=== PATIENT | male | born 1970 | race African-American/Black ===

== ENCOUNTER 2018-02-17 15:16 | Inpatient (IN) ==
[2018-02-17] MEDS ORDERED: Ondansetron 4 MG/2 ML VIAL IVP ONE (16:35)
[2018-02-17] MEDS ORDERED: *HR* HYDROmorphone (PF) 1 MG/ML SYRINGE IVP ONE (16:35)
--- NOTE | 2018-02-17 16:41 | Emergency Department Note ---
Disposition Clinical Impression: Left ureteral stone, Left flank pain Disposition: Admitted As Inpatient Condition: Good Forms: ED Satisfaction Letter, Work/School Release Time of Disposition: 18:14 Abdominal Pain HPI - General Chief Complaint: ED Abdominal Pain Stated Complaint: "kidney stone" Time Seen by Provider: 02/17/18 16:26 Source: patient, family Mode of arrival: ambulatory Limitations: no limitations Nursing Notes Reviewed: Yes Vital Signs Reviewed: Yes - History of Present Illness HPI Narrative: 47-year-old male presents emergency room for left flank pain. Onset earlier this morning. Pain isolated to the left flank. History of kidney stones. Missed to painful urination. Positive for nausea and vomiting. No fevers. History of lithotripsy and ureteral stent placement in the past. He does have a urologist he follows with. Nothing improves or worsens his symptoms. Pain is isolated to the left flank but it does have some radiation to the left lower quadrant. Pain Scale: 10 - Related Data Home Medications Medication Instructions Recorded Confirmed Acetaminophen [Tylenol] 325 mg PO Q6HR 01/13/16 01/13/16 Flaxseed/Omega3,6,9/Fatty Acid 1 each PO DAILY 01/13/16 01/13/16 [Flax Seed Oil 1,300 mg Softgel] Ibuprofen [Advil] 200 mg PO Q6H 01/13/16 01/13/16 Lisinopril [Zestril] 5 mg PO DAILY 01/13/16 01/13/16 Metoprolol [Lopressor] 25 mg PO BID 01/13/16 01/13/16 [place]-3/Dha/Epa/Fish Oil [Fish Oil 1 each PO DAILY 01/13/16 01/13/16 1,000 mg Softgel] Previous Rx's Medication Instructions Recorded Docusate [Colace] 100 mg PO BID #60 capsule 01/13/16 HYDROmorphone [Dilaudid] 2 mg PO Q4HR PRN #45 tablet 01/13/16 Oxycodone HCl/Acetaminophen 2 each PO Q4H PRN #45 tablet 01/13/16 [Percocet 5-325 mg Tablet] Allergies Allergy/AdvReac Type Severity Reaction Status Date / Time codeine AdvReac Hives Verified 01/13/16 09:12 hydrocodone [From Lortab] AdvReac Hives Verified 01/13/16 09:12 All systems ED: reviewed and negative except as stated. Constitutional: Denies: fever, chills Eyes: Denies: eye pain ENT ED: Denies: congestion Cardiovascular: Denies: chest pain Respiratory: Denies: cough Gastrointestinal: Reports: abdominal pain, nausea Genitourinary: Reports: urgency, dysuria Musculoskeletal: Reports: back pain Integumentary: Reports: as per HPI Neurological: Reports: as per HPI Psychiatric: Reports: as per HPI Endocrine: Reports: as per HPI Allergic/Immunologic: Reports: as per HPI Abdominal Pain PMH - Past Medical History Medical history: Reports: hypertension, other Male Surgical History: Reports: orthopedic, other, other Psychiatric history: Reports: no psych history - Social History Smoking status: Never smoker Alcohol use: Reports: occasionally Drug use: Reports: none Physical Exam Patient laying on his right side - General Limitations: no limitations General appearance: alert, in no apparent distress - Head Head exam: atraumatic, normocephalic - Eye Eye exam: Present: normal appearance - Respiratory Respiratory exam: Present: normal lung sounds bilaterally - Cardiovascular Cardiovascular exam: Present: regular rate, normal rhythm - Abdominal Exam Abdominal exam: Present: soft, Non-Tender, other (Positive for left flank tenderness.). Absent: tenderness, distention, guarding - Extremities Exam Extremities exam: Present: normal inspection - Neurological Exam Neurological exam: Present: alert, oriented X3 - Psychiatric Psychiatric exam: Present: normal affect, normal mood - Skin Skin exam: Present: warm, dry, intact Course Vital Signs Temperature 97.8 F 02/17/18 15:24 Pulse Rate 69 02/17/18 15:24 Respiratory Rate 18 02/17/18 15:24 Blood Pressure 180/116 02/17/18 15:24 O2 Sat by Pulse Oximetry 99 02/17/18 15:24 Temperature 97.8 F 02/17/18 15:24 Pulse Rate 71 02/17/18 16:37 Respiratory Rate 15 02/17/18 16:37 Blood Pressure 154/113 02/17/18 16:37 O2 Sat by Pulse Oximetry 99 02/17/18 16:37 Oxygen Delivery Oxygen Delivery Room Air Abdominal Pain - MDM Narrative Medical decision making narrative: Patient has 2 large stones in the left ureter I spoke with his urologist, Dr. Pabon. He would prefer the patient be admitted so he can to lithotripsy and ureteroscopy tomorrow. Pain is under control at this time with Dilaudid. We will admit to the hospitalist and consult with urology. - Medical Records Medical records reviewed: Yes I reviewed the patient's medical records. - Lab Data Lab results reviewed: Yes I reviewed the patient's lab results. Result diagrams: 02/17/18 16:53 02/17/18 16:53 Lab Results 02/17/18 02/17/18 02/17/18 Range/Units 16:31 16:53 16:53 WBC 11.8 H (4.3-11.1) K/mcL RBC 4.33 (4.19-5.50) M/mcL Hgb 13.1 (12.9-16.9) g/dL Hct 38.9 (37.5-50.1) % MCV 89.8 (83.0-100.0) fL MCH 30.3 (28.0-33.3) pg MCHC 33.7 (31.6-35.5) g/dL RDW 13.2 (11.5-14.5) % Plt Count 282 (140-400) K/mcL MPV 9.1 L (9.4-12.4) fL Immature Gran % 0.3 (0-4) % Seg Neutrophils % 81.0 % Lymphocytes % 11.3 % Monocytes % 4.7 % Eosinophils % 2.0 % Basophils % 0.7 % Neutrophils # 9.6 H (1.6-8.9) K/mcL Lymphocytes # 1.3 (0.6-4.6) K/mcL Monocytes # 0.6 (0.0-1.3) K/mcL Eosinophils # 0.2 (0.0-0.6) K/mcL Basophils # 0.1 (0.0-0.2) K/mcL Sodium 139 (136-145) mEq/L Potassium 3.4 L (3.5-5.1) mEq/L Chloride 108 H (98-107) mEq/L Carbon Dioxide 23 (23-29) mEq/L BUN 15 (6-20) mg/dL Creatinine 1.15 (0.70-1.30) mg/dL Est GFR ( Amer) > 60 (> 60) Est GFR (Non-Af Amer) > 60 (> 60) BUN/Creatinine Ratio 13 (6-26) Glucose 103 (70-105) mg/dL Calculated Osmolality 289 (280-300) Calcium 9.4 (8.6-10.3) mg/dL Urine Color Yellow (Yellow) Urine Clarity Clear (Clear) Urine pH 6.0 (5.0-8.0) pH Units Ur Specific [place] 1.023 (1.010-1.025) Urine Protein 30 H (Neg-Trace) mg/dL Urine Glucose (UA) Normal (Normal) mg/dL Urine Ketones Negative (Negative) mg/dL Urine Blood Large H (Negative) Urine Nitrite Negative (Negative) Urine Bilirubin Negative (Negative) Urine Urobilinogen Normal (Normal) mg/dL Ur Leukocyte Esterase Small H (Negative) Urine Microscopic RBC 50-100 H (0-3) per hpf Urine Microscopic WBC 0-3 (0-3) per hpf Ur Squamous Epith Cells Moderate H (None-Few) per lpf Urine Bacteria None Seen (None-Few) per hpf Hyaline Casts None Seen (None-Few) per lpf Ur Culture Indicated? YES A (NO) - Radiology Data Radiology results reviewed: Yes I reviewed the patient's radiology results.
[2018-02-17 16:57] LABS: Bilirubin,Urine Negative (Negative); Blood,Urine Large (Negative); Clarity,Urine Clear (Clear); Color,Urine Yellow (Yellow); Glucose,Urine (UA) Normal (Normal); Ketones,Urine Negative (Negative); Leukocyte Esterase,Urine Small (Negative); Nitrite,Urine Negative (Negative); Protein,Urine 30 mg/dL (Neg-Trace); Specific Gravity,Urine 1.023 (1.010-1.025); Urobilinogen,Urine Normal (Normal)
[2018-02-17 16:59] LABS: Bacteria,Urine None Seen per hpf (None-Few); Hyaline Casts,Urine None Seen per lpf (None-Few); RBC,Urine 50-100 per hpf (0-3); Squamous Epithelial Cell,Urine Moderate per lpf (None-Few); WBC,Urine 0-3 per hpf (0-3)
[2018-02-17 17:27] LABS: Basophils # 0.1 K/mcL (0.0-0.2); Basophils % 0.7 %; Eosinophils # 0.2 K/mcL (0.0-0.6); Hematocrit 38.9 % (37.5-50.1); Hemoglobin 13.1 g/dL (12.9-16.9); Immature Granulocytes % 0.3 % (0-4); Lymphocytes # 1.3 K/mcL (0.6-4.6); Lymphocytes % 11.3 %; Mean Corpuscular HGB Conc 33.7 g/dL (31.6-35.5); Mean Corpuscular Hemoglobin 30.3 pg (28.0-33.3); Mean Corpuscular Volume 89.8 fL (83.0-100.0); Mean Platelet Volume 9.1 fL (9.4-12.4); Monocytes # 0.6 K/mcL (0.0-1.3); Monocytes % 4.7 %; Neutrophils # 9.6 K/mcL (1.6-8.9); Platelet Count 282 K/mcL (140-400); Red Blood Count 4.33 M/mcL (4.19-5.50); Red Cell Distribution Width 13.2 % (11.5-14.5)
[2018-02-17 17:37] LABS: BUN/Creatinine Ratio 13 (6-26); Blood Urea Nitrogen 15 mg/dL (6-20); Calcium 9.4 mg/dL (8.6-10.3); Carbon Dioxide 23 mEq/L (23-29); Chloride 108 mEq/L (98-107); Glucose 103 mg/dL (70-105); Osmolality,Calculated 289 (280-300); Potassium 3.4 mEq/L (3.5-5.1); Sodium 139 mEq/L (136-145); eGFR For Non-African Americans > 60 (> 60)
[2018-02-17] MEDS ORDERED: Ketorolac 15 MG/ML VIAL IVP ONE (18:12)
[2018-02-17] MEDS ORDERED: Acetaminophen 325 MG TABLET PO PRN (21:37)
[2018-02-17] MEDS ORDERED: Naloxone 0.4 MG/ML INJ IVP PRN (21:37)
[2018-02-17] MEDS ORDERED: Ondansetron 4 MG/2 ML VIAL IVP PRN (21:44)
[2018-02-17] MEDS ORDERED: *HR* FentaNYL (PF) 100 MCG/2 ML VIAL IVP PRN (21:44)
[2018-02-17] MEDS ORDERED: cefTRIAXone 2,000 MG in Water for inj. (sterile) 20 ML 20 ML IVP SCH (22:00)
[2018-02-17] MEDS: 0.9 % Sodium Chloride w KCl 20 MEQ/1,000 ML MLS IVC SCH (22:15)
--- NOTE | 2018-02-18 00:36 | Internal Med History&Physical ---
Date of Encounter: 02/17/18 Time of Encounter: 20:35 Internal Medicine - H&P: HPI Chief complaint: left flank pain Admitted From: Emergency Dept Plans for Post Hospital Care: Home History of present illness: Mr. Rizo is a 47 year old male who presents with a one day history of acute onset of left-sided flank pain, associated nausea, vomiting, and subjective fevers. He was seen and evaluated in the ER and found to have obstructing stones in his left ureter with some mild hydronephrosis. He was therefore admitted to hospitalist service with urology consultation. Upon my assessment of the patient, he is having some pain and nausea but otherwise denies any complaints. He was feeling well until roughly 2 days ago. He has a history of kidney stones requiring intervention in the past. He denies any dysuria, hematuria, or urinary urgency. He denies any cough, shortness breath, chest pain, or diarrhea. He has had open-heart surgery in the past requiring mitral valve repair of his redding valve. He does not take any chronic home medications and does not require anticoagulation. Past Med Surg Social Fam HX - Past Medical History Attestation: Yes The following information was validated with the patient. Source: patient, old records reviewed Medical history: hypertension, kidney stones Additional medical history: MV repair, crohn's Psychiatric history: no psych history - Past Surgical History Surgical History: ureteral stent Additional surgical history: knee scope, mitral valve repair - Social History Smoking Status: Never smoker Smokeless Tobacco Status: No Alcohol use: occasionally Drug use: none Current living situation: Home, With Family Activity Level: Independent ambulation Recent Out of Country Travel Within the Last 8 Weeks: No - Family History Mother Hx Family Cardiac Disorders: Yes Hx Family Genitourinary Disorders: No Father Hx Family Genitourinary Disorders: No Internal Medicine - H&P: Meds [place]-3/Dha/Epa/Fish Oil [Fish Oil 1,000 mg Softgel] 2 cap PO HS 01/13/16 [ History] Glucosamn/Condroitn/C/Mn/[place] [[facility]vs Glucosamine Chondroit Cplt] 3 tab PO HS [History] 3 Allergy/AdvReac Type Severity Reaction Status Date / Time codeine Allergy Hives Verified 02/17/18 22:23 hydrocodone [From Lortab] Allergy Hives Verified 02/17/18 22:23 - Constitutional Constitutional: fever(s), no chills, no night sweats - EENT Eyes: no change in vision Ears: no ear pain, no tinnitus Nose, mouth and throat: no nasal congestion, no sore throat - Cardiovascular Cardiovascular ROS IM: no chest pain, no dyspnea, no dyspnea on exertion - Respiratory Respiratory: no cough, no chest congestion - Gastrointestinal Gastrointestinal: nausea, vomiting, no abdominal pain, no diarrhea, no hematemesis, no hematochezia, no melena - Genitourinary Genitourinary ROS male: flank pain, no dysuria, no hematuria, no urinary frequency, no urinary urgency - Musculoskeletal Musculoskeletal ROS IM: no arthralgias, no back pain - Integumentary Integumentary IM: no rash, no jaundice - Neurological Neurological ROS: no dizziness, no focal weakness, no frequent falls, no headache(s) - Psychiatric Psychiatric: no anxiety, no depression - Endocrine Endocrine IM: no polydipsia, no polyuria - Allergic/Immunologic Allergic/Immunologic: no GI upset with certain foods - Constitutional Vitals: Temp Pulse Resp BP Pulse Ox 98.2 F 68 13 146/90 99 02/17/18 22:37 02/17/18 22:37 02/17/18 22:37 02/17/18 22:37 02/17/18 22:37 General appearance: Present: cooperative, mild distress, A&O X 3, pleasant, answers questions appropriately Exam: see below - Head Head exam: Present: normal inspection - Eye Eye exam: Present: EOMI, normal appearance, PERRL. Absent: scleral icterus Pupils: Present: normal accommodation - ENT ENT exam: Present: mucous membranes dry, normal exam, normal oropharynx - Neck Neck exam general surgery: Present: full ROM, supple. Absent: tenderness, nuchal rigidity, thyromegaly - Respiratory Respiratory exam: Present: CTAB. Absent: chest wall tenderness, rales, rhonchi , wheezes - Cardiovascular Cardiovascular exam: Present: RRR, +S1, +S2. Absent: diastolic murmur, systolic murmur - GI/Abdominal GI/Abdominal exam: Present: normal bowel sounds, soft, tenderness (LUQ/flank area). Absent: guarding, hepatomegaly, mass, rebound, splenomegaly - Extremities Exam Extremities exam: Present: full ROM, normal capillary refill, warm, radial pulses palpable and symmetrical. Absent: calf tenderness, tenderness - Back Exam Back exam: Present: CVA tenderness (L). Absent: CVA tenderness (R) - Neurological Exam Neurological exam: Present: alert, CN II-XII intact, oriented X3, no focal deficits, strengths equal and symetr throughout - Psychiatric Psychiatric exam: Present: normal affect, normal mood - Skin Skin exam: Present: dry, warm. Absent: rash Internal Med - H&P Results - Labs CBC & Chem 7: 02/17/18 16:53 02/17/18 16:53 - Diagnostic Studies CT scan - abdomen Additional comments: Report reviewed: obstructing stone x 2 in left ureter w mild hydronephrosis - Assessment and plan (1) Left ureteral stone Current Visit: Yes Status: Acute Assessment and plan: 1. Will hydrate with IVF. 2. Pain and nausea control with IV Fentanyl and Zofran respectively. 3. Urology has been consulted and will likely take patient to OR in the morning for ureteral stent and lithotripsy. (2) UTI (urinary tract infection) Current Visit: Yes Status: Suspected Assessment and plan: 1. Given elevated WBC, subjective fever, and abnormal U/A, will treat for UTI with Rocephin. 2. Follow blood and urine cultures. Qualifiers: Urinary tract infection type: acute cystitis Hematuria presence: with hematuria Qualified Code(s): N30.01 - Acute cystitis with hematuria (3) S/P mitral valve repair Current Visit: Yes Status: Chronic Assessment and plan: 1. No acute process; s/p repair several years ago. (4) DVT prophylaxis Current Visit: Yes Status: Acute Assessment and plan: 1. Heparin SQ.
[2018-02-18 01:59] LABS: Basophils # 0.1 K/mcL (0.0-0.2); Basophils % 0.9 %; Eosinophils # 0.3 K/mcL (0.0-0.6); Eosinophils % 2.5 %; Hematocrit 40.5 % (37.5-50.1); Hemoglobin 13.6 g/dL (12.9-16.9); Immature Granulocytes % 0.2 % (0-4); Lymphocytes # 2.2 K/mcL (0.6-4.6); Lymphocytes % 21.5 %; Mean Corpuscular HGB Conc 33.6 g/dL (31.6-35.5); Mean Corpuscular Hemoglobin 29.8 pg (28.0-33.3); Mean Corpuscular Volume 88.6 fL (83.0-100.0); Monocytes # 0.9 K/mcL (0.0-1.3); Monocytes % 8.8 %; Neutrophils # 6.6 K/mcL (1.6-8.9); Platelet Count 305 K/mcL (140-400); Red Blood Count 4.57 M/mcL (4.19-5.50); Red Cell Distribution Width 13.2 % (11.5-14.5); Segmented Neutrophils % 66.1 %
[2018-02-18 02:06] LABS: Prothrombin Time 11.2 Seconds (9.4-12.1)
[2018-02-18 02:09] LABS: Activated Partial Thrombo Time 31.2 Seconds (26.0-36.0)
[2018-02-18 02:17] LABS: Alanine Aminotransferase 15 Units/L (7-52); Albumin 4.4 g/dL (3.5-5.7); Albumin/Globulin Ratio 1.5 (1.1-2.2); Alkaline Phosphatase 79 Units/L (34-104); Aspartate Amino Transferase 18 Units/L (13-39); BUN/Creatinine Ratio 13 (6-26); Bilirubin,Total 0.3 mg/dL (0.3-1.0); Blood Urea Nitrogen 14 mg/dL (6-20); Calcium 9.1 mg/dL (8.6-10.3); Carbon Dioxide 26 mEq/L (23-29); Chloride 108 mEq/L (98-107); Glucose 103 mg/dL (70-105); Magnesium 2.3 mg/dL (1.6-2.6); Osmolality,Calculated 291 (280-300); Potassium 3.7 mEq/L (3.5-5.1); Sodium 140 mEq/L (136-145); Total Protein 7.4 g/dL (6.4-8.9); eGFR For Non-African Americans > 60 (> 60)
[2018-02-18] MEDS ORDERED: *HR* Heparin 5,000 UNIT/ML VIAL SQ SCH (06:00)
--- NOTE | 2018-02-18 08:20 | Urology - Consult Note ---
<Candice Simon N - Last Filed: 02/18/18 08:14> Date of Encounter: 02/18/18 Time of Encounter: 08:14 - Assessment and Plan (1) Left ureteral stone Current Visit: Yes Status: Acute Assessment and plan: Patient is a 47-year-old male who presents with left obstructing ureteral stones measuring 6 mm and 8 mm and left hydronephrosis. The patient was admitted to the hospitalist service for stone protocol and pain control. Dr. Pabon has reviewed the risks and benefits of surgery. The patient verbalized understanding, consent has been signed, he will remain NPO, and he is prepared to undergo a left ureteroscopic stone extraction with holmium laser , basket retrieval, and left ureteral stent placement today, February 18, 2018. Urology CN:MARCIE Consult date: 02/18/18 Reason for consult Urology: Other (left ureteral stone) History of present illness: Patient is a 47-year-old male who presented to the emergency department with abdominal pain and left flank pain. The patient states he was out doing yard work all day yesterday, and after he was finished, he started to feel left flank pain radiating to his groin. The pain intensified and was accompanied with nausea and chills. The patient denies gross hematuria, fever, diaphoresis , palpitations, dyspnea. The patient has a positive history for kidney stones, and he believes his last stone occurred greater than 5 years ago. The patient has undergone ESWL twice but has never undergone ureteroscopy. The patient does not have a known family history for renal disease or renal stones. CT scan of the abdomen and pelvis revealed 6 mm and 8 mm obstructing stones in the left proximal ureter and bilateral nephrolithiasis. Past Med Surg Social Fam HX - Past Medical History Medical history: hypertension, kidney stones Additional medical history: MV repair, crohn's Psychiatric history: no psych history - Past Surgical History Surgical History: ureteral stent Additional surgical history: knee scope, mitral valve repair - Social History Smoking Status: Never smoker Smokeless Tobacco Status: No Alcohol use: occasionally Drug use: none - Family History Mother Hx Family Cardiac Disorders: Yes Hx Family Genitourinary Disorders: No Father Hx Family Genitourinary Disorders: No Medications and Allergies [place]-3/Dha/Epa/Fish Oil [Fish Oil 1,000 mg Softgel] 2 cap PO HS 01/13/16 [ History] Glucosamn/Condroitn/C/Mn/[place] [[facility]vs Glucosamine [place]ond[place] Cplt] 3 tab PO HS [History] 3 Allergy/AdvReac Type Severity Reaction Status Date / Time codeine Allergy Hives Verified 02/17/18 22:23 hydrocodone [From Lortab] Allergy Hives Verified 02/17/18 22:23 Review of Systems - Constitutional chills, no fatigue, no fever(s) - EENT Nose, mouth and throat: no dizziness, no headache(s) - Cardiovascular no chest pain, no diaphoresis, no dyspnea - Respiratory no cough, no dyspnea - Gastrointestinal abdominal pain, nausea, no vomiting - Genitourinary flank pain, urinary hesitancy, no difficulty urinating, no hematuria, no urinary frequency, no urinary incontinence, no urinary urgency - Integumentary no lesions, no rash - Neurological no confusion, no weakness - Psychiatric no anxiety, no confusion Exam Initial Vital Signs Temp Pulse Resp BP Pulse Ox 97.8 F 69 18 180/116 99 02/17/18 15:24 02/17/18 15:24 02/17/18 15:24 02/17/18 15:24 02/17/18 15:24 - General physical appearance Present: well developed, well nourished, no distress, moderate pain - Eyes Present: PERRL, normal ocular movement - ENT Present: normal nares, no hearing loss - Neck Present: no masses, trachea midline - Respiratory Present: normal respiratory effort - Cardiovascular Cardiovascular exam IM: RRR - Abdomen Abdomen: Present: soft, non tender - Integumentary Present: no rash, no abnormal pigmentation - Musculoskeletal Present: other (normal posture; no pedal edema ) Urology Results - Labs 02/18/18 01:29 02/18/18 01:29 Abnormal lab results MPV 9.0 fL (9.4-12.4) L 02/18/18 01:29 Chloride 108 mEq/L (98-107) H 02/18/18 01:29 Urine Protein 30 mg/dL (Neg-Trace) H 02/17/18 16:31 Urine Blood Large (Negative) H 02/17/18 16:31 Ur Leukocyte Esterase Small (Negative) H 02/17/18 16:31 Urine Microscopic RBC 50-100 per hpf (0-3) H 02/17/18 16:31 Ur Squamous Epith Cells Moderate per lpf (None-Few) H 02/17/18 16:31 Ur Culture Indicated? YES (NO) A 02/17/18 16:31 Diabetes panel 02/18/18 Range/Units 01:29 Sodium 140 (136-145) mEq/L Potassium 3.7 (3.5-5.1) mEq/L Chloride 108 H (98-107) mEq/L Carbon Dioxide 26 (23-29) mEq/L BUN 14 (6-20) mg/dL Creatinine 1.09 (0.70-1.30) mg/dL Glucose 103 (70-105) mg/dL Calcium 9.1 (8.6-10.3) mg/dL AST 18 (13-39) Units/L ALT 15 (7-52) Units/L Alkaline Phosphatase 79 (34-104) Units/L Albumin 4.4 (3.5-5.7) g/dL Calcium panel 02/18/18 Range/Units 01:29 Calcium 9.1 (8.6-10.3) mg/dL Albumin 4.4 (3.5-5.7) g/dL Pituitary panel 02/18/18 Range/Units 01:29 Sodium 140 (136-145) mEq/L Potassium 3.7 (3.5-5.1) mEq/L Chloride 108 H (98-107) mEq/L Carbon Dioxide 26 (23-29) mEq/L BUN 14 (6-20) mg/dL Creatinine 1.09 (0.70-1.30) mg/dL Glucose 103 (70-105) mg/dL Calcium 9.1 (8.6-10.3) mg/dL Adrenal panel 02/18/18 Range/Units 01:29 Sodium 140 (136-145) mEq/L Potassium 3.7 (3.5-5.1) mEq/L Chloride 108 H (98-107) mEq/L Carbon Dioxide 26 (23-29) mEq/L BUN 14 (6-20) mg/dL Creatinine 1.09 (0.70-1.30) mg/dL Glucose 103 (70-105) mg/dL Calcium 9.1 (8.6-10.3) mg/dL Total Bilirubin 0.3 (0.3-1.0) mg/dL AST 18 (13-39) Units/L ALT 15 (7-52) Units/L Alkaline Phosphatase 79 (34-104) Units/L Albumin 4.4 (3.5-5.7) g/dL All other labs normal. - Imaging CT scan - abdomen: report reviewed, image reviewed CT scan - pelvis: report reviewed, image reviewed Consult Discharge Plan - Plan Referrals: Shaan Chilel DO [Primary Care Provider] - Missael Pabon MD [Partnered Physician] - <Missael Pabon - Last Filed: 02/18/18 09:32> Date of Encounter: 02/18/18 Exam Initial Vital Signs Temp Pulse Resp BP Pulse Ox 97.8 F 69 18 180/116 99 02/17/18 15:24 02/17/18 15:24 02/17/18 15:24 02/17/18 15:24 02/17/18 15:24 Urology Results - Labs 02/18/18 01:29 02/18/18 01:29 Abnormal lab results MPV 9.0 fL (9.4-12.4) L 02/18/18 01:29 Chloride 108 mEq/L (98-107) H 02/18/18 01:29 Urine Protein 30 mg/dL (Neg-Trace) H 02/17/18 16:31 Urine Blood Large (Negative) H 02/17/18 16:31 Ur Leukocyte Esterase Small (Negative) H 02/17/18 16:31 Urine Microscopic RBC 50-100 per hpf (0-3) H 02/17/18 16:31 Ur Squamous Epith Cells Moderate per lpf (None-Few) H 02/17/18 16:31 Ur Culture Indicated? YES (NO) A 02/17/18 16:31 Diabetes panel 02/18/18 Range/Units 01:29 Sodium 140 (136-145) mEq/L Potassium 3.7 (3.5-5.1) mEq/L Chloride 108 H (98-107) mEq/L Carbon Dioxide 26 (23-29) mEq/L BUN 14 (6-20) mg/dL Creatinine 1.09 (0.70-1.30) mg/dL Glucose 103 (70-105) mg/dL Calcium 9.1 (8.6-10.3) mg/dL AST 18 (13-39) Units/L ALT 15 (7-52) Units/L Alkaline Phosphatase 79 (34-104) Units/L Albumin 4.4 (3.5-5.7) g/dL Calcium panel 02/18/18 Range/Units 01:29 Calcium 9.1 (8.6-10.3) mg/dL Albumin 4.4 (3.5-5.7) g/dL Pituitary panel 02/18/18 Range/Units 01:29 Sodium 140 (136-145) mEq/L Potassium 3.7 (3.5-5.1) mEq/L Chloride 108 H (98-107) mEq/L Carbon Dioxide 26 (23-29) mEq/L BUN 14 (6-20) mg/dL Creatinine 1.09 (0.70-1.30) mg/dL Glucose 103 (70-105) mg/dL Calcium 9.1 (8.6-10.3) mg/dL Adrenal panel 02/18/18 Range/Units 01:29 Sodium 140 (136-145) mEq/L Potassium 3.7 (3.5-5.1) mEq/L Chloride 108 H (98-107) mEq/L Carbon Dioxide 26 (23-29) mEq/L BUN 14 (6-20) mg/dL Creatinine 1.09 (0.70-1.30) mg/dL Glucose 103 (70-105) mg/dL Calcium 9.1 (8.6-10.3) mg/dL Total Bilirubin 0.3 (0.3-1.0) mg/dL AST 18 (13-39) Units/L ALT 15 (7-52) Units/L Alkaline Phosphatase 79 (34-104) Units/L Albumin 4.4 (3.5-5.7) g/dL All other labs normal. - Attending Attestation Patient seen and examined the PA. He has bilateral nephrolithiasis with obstructing left ureteral stones. I recommend proceeding with a left ureteroscopy, laser lithotripsy, and stent placement. He was informed of the risks of the procedure including but not limited to bleeding, infection, injury to other structures, need for further procedures, stent irritation, incomplete fragmentation, ureteral perforation, need for nephrostomy tube, need for open repair, risks unforeseen, and the risk of anesthesia. He is willing to proceed.
[2018-02-18] MEDS: 0.9 % Sodium Chloride w KCl 20 MEQ/1,000 ML MLS IVC SCH (10:35)
--- NOTE | 2018-02-18 10:44 | Anesthesia Evaluation PreOp ---
Date of Encounter: 02/18/18 Time of Encounter: 12:59 - Past History Planned Operation: L ureteroscopy with stent Cardiac History: HTN, Hyperlipidemia, Cardiac Surgery (MV repair 10/09) Pulmonary History: Denies Any Significant HX CUSTOMS EXAMINER History: Denies Any Significant HX Other Medical History: Renal (kidney stones), Other (Crohns disease) Anesthesia History: No Prior Anesthetic Complications, Past Anesthesia Alcohol Use: occasionally Drug use: none Medications and Allergies [place]-3/Dha/Epa/Fish Oil [Fish Oil 1,000 mg Softgel] 2 cap PO HS 01/13/16 [ History] Glucosamn/[place]n/C/Mn/[place] [[facility]vs Glucosamine [place] Cplt] 3 tab PO HS [History] 3 Allergy/AdvReac Type Severity Reaction Status Date / Time codeine Allergy Hives Verified 02/17/18 22:23 hydrocodone [From Lortab] Allergy Hives Verified 02/17/18 22:23 - Meds/Allergy Pre-op Review Medications Reviewed: Yes Allergies Reviewed: Yes Beta Blockers on Current Med List: No Anesthesia Results - Labs 02/18/18 01:29 02/18/18 01:29 - Imaging EKG: report reviewed, image reviewed Anesthesia Exam Vital Signs/O2 Sat/Glucose, Most Recent Temp Pulse Resp BP Pulse Ox 97.5 F L 65 16 154/88 98 02/18/18 10:22 02/18/18 10:22 02/18/18 10:22 02/18/18 10:22 02/18/18 10:22 Blood Glucose* 96 Height: 1.8 m Weight: 95.7 kg NPO (# of Hours): > 8 hr - HEENT Pupil (Motor): Pupils equal Mallampati: II Teeth: Normal Oral Opening: Greater than 3 - CUSTOMS EXAMINER LOC: Oriented CUSTOMS EXAMINER Motor: Normal RUE, Normal LUE, Normal RLE, Normal LLE, Normal Face CUSTOMS EXAMINER Sensory: Normal: RUE, LUE, RLE, LLE, Face - Cardiac Rhythm: Regular Murmur: None - Pulmonary Breath Sounds: bilateral Clear Respiratory Effort: Symmetrical Anesthesia Assess/Plan ASA Score: 2 Modified [place] Scale for Level of Consciousness: Cooperative, oriented, and tranquil Anesthetic Plan: General Monitoring Plan: Standard Monitors Recovery Plan: PACU
--- NOTE | 2018-02-18 12:18 | Internal Med Progress Note ---
Hospitalist Progress Note - Encounter Date of Encounter: 02/18/18 Time of Encounter: 12:16 - Subjective Interval History: patient seen and examined no more pain no nausea or vomitting - Exam Vitals: Temp Pulse Resp BP Pulse Ox 97.5 F L 65 16 154/88 98 02/18/18 10:22 02/18/18 10:22 02/18/18 10:22 02/18/18 10:22 02/18/18 10:22 Exam: see below - Assessment and Plan (1) Left ureteral stone Current Visit: Yes Status: Acute Assessment and Plan: pain is under control for surgery stone extraction/stent? this afternoon (2) UTI (urinary tract infection) Current Visit: Yes Status: Suspected Assessment and Plan: on rocephin cultures pending (3) S/P mitral valve repair Current Visit: Yes Status: Chronic Assessment and Plan: no complication (4) HTN (hypertension) Current Visit: Yes Status: Chronic - Time Spent with Patient Total time spent is greater than 50% in coordination of care (as documented) at patient's floor/unit and/or counseling patient: Internal Medicine: Result - Labs CBC & Chem 7: 02/18/18 01:29 02/18/18 01:29 Labs: Short CBC 02/18/18 Range/Units 01:29 WBC 10.0 (4.3-11.1) K/mcL Hgb 13.6 (12.9-16.9) g/dL Hct 40.5 (37.5-50.1) % Plt Count 305 (140-400) K/mcL Neutrophils # 6.6 (1.6-8.9) K/mcL BMP 02/18/18 01:29 Sodium 140 Potassium 3.7 Chloride 108 H Carbon Dioxide 26 BUN 14 Creatinine 1.09 Glucose 103 Calcium 9.1 Liver Function 02/18/18 Range/Units 01:29 Total Bilirubin 0.3 (0.3-1.0) mg/dL AST 18 (13-39) Units/L ALT 15 (7-52) Units/L Alkaline Phosphatase 79 (34-104) Units/L Albumin 4.4 (3.5-5.7) g/dL - ABG Interpretation ABG results: PT/INR, D-dimer PT 11.2 Seconds (9.4-12.1) 02/18/18 01:29 Consult Discharge Plan - Plan Referrals: Skocik,Shaan J, DO [Primary Care Provider] - Missael Pabon MD [Partnered Physician] - (2) UTI (urinary tract infection) Qualifiers: Urinary tract infection type: acute cystitis Hematuria presence: with hematuria Qualified Code(s): N30.01 - Acute cystitis with hematuria (4) HTN (hypertension) Qualifiers: Hypertension type: essential hypertension Qualified Code(s): I10 - Essential (primary) hypertension
[2018-02-18] MEDS ORDERED: Ondansetron 4 MG/2 ML VIAL ONE (12:42)
[2018-02-18] MEDS ORDERED: *HR* Propofol 200 MG/20 ML VIAL IVP ONE ×2 (12:42→13:30)
[2018-02-18] MEDS ORDERED: Dexamethasone 4 MG/ML VIAL ONE (12:42)
[2018-02-18] MEDS ORDERED: *HR* FentaNYL (PF) 100 MCG/2 ML VIAL ONE ×3 (12:42→14:56)
[2018-02-18] MEDS ORDERED: Lidocaine -MPF 2% 2 ML VIAL ONE (12:43)
[2018-02-18] MEDS ORDERED: *HR* Promethazine 25 MG/ML VIAL IVP PRN (12:44)
[2018-02-18] MEDS ORDERED: *HR* Labetalol 20 MG/4 ML SYRINGE IVP PRN (12:44)
[2018-02-18] MEDS ORDERED: *HR* OxyCODONE Immed Rel 5 MG TABLET PO PRN (12:44)
[2018-02-18] MEDS ORDERED: *HR* FentaNYL (PF) 100 MCG/2 ML VIAL IVP PRN (12:44)
[2018-02-18] MEDS ORDERED: MORPHINE SUL Oral CONC 10 MG/0.5 ML ORAL.SYG SL PRN (13:01)
--- NOTE | 2018-02-18 14:58 | Operative Note ---
Date of procedure: 02/18/18 Pre-op diagnosis: left ureteral stone, left renal stone Post-op diagnosis: same Procedure: Left distal ureteroscopy, laser lithotripsy, basket stone extraction, and stent placement. Staged left proximal ureteroscopy and laser lithotripsy. Implants: 6-Algerian by 26 cm double-J stent. Complications: None Anesthesia: GETA Surgeon: Missael Pabon Was there an payroll and benefits assistant present: No Estimated blood loss (cc): 1 Specimen: left ureteral stone Condition: stable Disposition: PACU Procedure in Detail: Indications: Mr. Rizo is a 47-year-old male who has a history of nephrolithiasis. He had presented with left flank pain. A CT scan showed a left proximal ureteral stone as well as left renal stones. He elected to undergo a left ureteroscopy, laser lithotripsy, and basket stone extraction with stent placement. He was aware of the risks of the procedure including but not limited to bleeding, infection, injury to other structures, need for further procedures, stent irritation, need for nephrostomy tube, need for open repair, risks otherwise unforeseen, and the risk of anesthesia. He is willing to proceed. Procedure in Detail: After informed consent was obtained the patient was brought back to the operating room and placed in supine position. A time out was performed. General anesthesia was administered and an LMA was placed. He was then placed in the lithotomy position. He was prepped and draped in the usual sterile fashion. Cystoscopy was performed. The anterior urethra was normal. There was no evidence of bladder tumors. The ureteral orifices were in the normal orthotopic position. There was no duplication of the ureteral orifices. The sensor wire was placed in the left ureteral orifice. The wire was then brought up into the kidney under fluoroscopic guidance. The left ureter was dilated with the 8/10-Algerian ureteral dilator. The semirigid ureteroscope was advanced into the ureter. The stone was identified in the ureter. The stone was fragmented using the 200 micron laser fiber. The stone fragments were basket extracted. Once all the stones were removed I placed a second wire. I then passed the 11/13 Algerian ureteral access sheath. The flexible ureteroscope was then advanced into the kidney. Multiple stones were seen throughout the kidney. The smaller stones were basket extracted. The larger stones were basketed and moved into the upper pole calyx. The stones were then fragmented using the 200 micron laser fiber and fragmented the stones into small pieces. These pieces were then basket extracted. There was a large volume of stone. As time went on visualization became more impaired secondary to mild bleeding which led to some difficulty seeing all of the calyces well. At that point I felt to be safe just to place a stent and see what residual stone remained later by x-ray. The ureteroscope was then removed and the pullout ureteroscopy showed no injury to the ureter. A 6 Algerian by 26cm JJ stent was then placed. The dangle strings were left intact and secured to the penis with a Tegaderm. The patient was then awakened from general anesthesia and brought to recovery room in good condition. All sponge, needle, and instrument counts were correct.
[2018-02-18] MEDS ORDERED: *HR* Labetalol 100 MG/20 ML MDV ONE (15:17)
[2018-02-18] MEDS ORDERED: Ringers Solution, Lactated 1,000 ML ONE (15:51)
[2018-02-18] MEDS ORDERED: Acetaminophen 325 MG TABLET PO PRN (16:00)
[2018-02-18] MEDS ORDERED: *HR* OxyCODONE/APAP 5/325 TABLET PO PRN (16:00)
[2018-02-18] MEDS ORDERED: Naloxone 0.4 MG/ML INJ IVP PRN (16:00)
[2018-02-18] MEDS: *HR* OxyCODONE Immed Rel 5 MG TABLET PO PRN (16:33)
[2018-02-18] MEDS: Ondansetron 4 MG/2 ML VIAL IVP PRN (16:35)
[2018-02-18] MEDS: *HR* Heparin 5,000 UNIT/ML VIAL SQ SCH (17:37)
--- NOTE | 2018-02-18 19:12 | Anesthesia Evaluation Post Op ---
Date of Encounter: 02/18/18 Time of Encounter: 15:50 - Discharge PostOp Status: Transfer Patient to floor (Patient's vital signs have been reviewed. Patient is stable postoperatively and has adequately recovered from anesthesia. Patient is determined to have stable airway patency and respiratory function including respiratory rate and oxygen saturation. Patient has a stable heart rate, blood pressure and adequate hydration. Patients mental status is acceptable. Patients temperature is appropriate. Pain and nausea are adequately controlled.)
[2018-02-18] MEDS ORDERED: *HR* OxyCODONE Immed Rel 5 MG TABLET PO ONE (20:09)
[2018-02-18] MEDS ORDERED: *HR* Promethazine 25 MG/ML VIAL IM ONE (20:11)
[2018-02-18] MEDS ORDERED: cefTRIAXone 2,000 MG in Water for inj. (sterile) 20 ML 20 ML IVP SCH (22:00)
[2018-02-19] MEDS: *HR* OxyCODONE Immed Rel 5 MG TABLET PO PRN ×2 (02:16→11:55)
--- NOTE | 2018-02-19 07:18 | Internal Med Progress Note ---
Hospitalist Progress Note - Encounter Date of Encounter: 02/19/18 - Subjective Interval History: Mr. Rizo is a 47 year old male who presents with a one day history of acute onset of left-sided flank pain, associated nausea, vomiting, and subjective fevers. He was seen and evaluated in the ER and found to have obstructing stones in his left ureter with some mild hydronephrosis. He was therefore admitted to hospitalist service with urology consultation. Upon my assessment of the patient, he is having some pain and nausea but otherwise denies any complaints. He was feeling well until roughly 2 days ago. He has a history of kidney stones requiring intervention in the past. He denies any dysuria, hematuria, or urinary urgency. He denies any cough, shortness breath, chest pain, or diarrhea. He has had open-heart surgery in the past requiring mitral valve repair of his walk[place] valve. He does not take any chronic home medications and does not require anticoagulation. - Exam Vitals: Temp Pulse Resp BP Pulse Ox 98.2 F 70 15 112/68 98 02/19/18 06:31 02/19/18 06:31 02/19/18 06:31 02/19/18 06:31 02/19/18 06:31 - Assessment and Plan (1) Left ureteral stone Current Visit: Yes Status: Acute Assessment and Plan: Left distal ureteroscopy, laser lithotripsy, basket stone extraction, and stent placement. Staged left proximal ureteroscopy and laser lithotripsy. 02/18 (2) UTI (urinary tract infection) Current Visit: Yes Status: Suspected (3) HTN (hypertension) Current Visit: Yes Status: Chronic (4) S/P mitral valve repair Current Visit: Yes Status: Chronic - Time Spent with Patient Total time spent is greater than 50% in coordination of care (as documented) at patient's floor/unit and/or counseling patient: Internal Medicine: Result - Labs CBC & Chem 7: 02/18/18 01:29 02/18/18 01:29 - ABG Interpretation ABG results: PT/INR, D-dimer PT 11.2 Seconds (9.4-12.1) 02/18/18 01:29 Consult Discharge Plan - Plan Referrals: Shaan Chilel DO [Primary Care Provider] - Missael Pabon MD [Partnered Physician] - (2) UTI (urinary tract infection) Qualifiers: Urinary tract infection type: acute cystitis Hematuria presence: with hematuria Qualified Code(s): N30.01 - Acute cystitis with hematuria (3) HTN (hypertension) Qualifiers: Hypertension type: essential hypertension Qualified Code(s): I10 - Essential (primary) hypertension
[2018-02-19] MEDS: *HR* Heparin 5,000 UNIT/ML VIAL SQ SCH (07:20)
--- NOTE | 2018-02-19 09:25 | Urology Progress Note ---
Date of Encounter: 02/19/18 Time of Encounter: 09:23 - Assessment and Plan (1) Left ureteral stone Current Visit: Yes Status: Acute Assessment and plan: Postop day #1 status post left ureteroscopic stone extraction. He is doing well. He can follow-up with me in 3-4 weeks with a KUB prior. He can remove his stent at home or if he is uncomfortable with this, he can return to the office for a stent removal this week. I provided him instructions on how to remove the stent and he is to do this in 5 days. I answered all his questions. Progress Note Narrative: Postop day #1 status post left ureteroscopy, laser lithotripsy, and stent placement. He is doing well today. Objective Initial Vital Signs Temp Pulse Resp BP Pulse Ox 97.8 F 69 18 180/116 99 02/17/18 15:24 02/17/18 15:24 02/17/18 15:24 02/17/18 15:24 02/17/18 15:24 - General physical appearance Present: well developed, well nourished, no distress - Respiratory Present: normal respiratory effort - Abdomen Present: soft - Labs 02/18/18 01:29 02/18/18 01:29 Consult Discharge Plan - Plan Referrals: Shaan Chilel DO [Primary Care Provider] - Missael Pabon MD [Partnered Physician] -
[2018-02-19] MEDS: Ondansetron 4 MG/2 ML VIAL IVP PRN (11:55)
[2018-02-19 13:56] VITALS: BP 132/83
--- NOTE | 2018-02-19 14:34 | Discharge Summary ---
- NOTES TO OUTPATIENT PROVIDER Notes to Outpatient Provider: 1. OP follow up with urology in 3-4 weeks. 2. Patient may remove the stent in 5 days at home or go to urology office for removal Date of Encounter: 02/19/18 Time of Encounter: 14:32 - Discharge Diagnosis (1) Left ureteral stone Priority: Primary Status: Acute Assessment and Plan: . (2) UTI (urinary tract infection) Priority: Secondary Status: Resolved Qualifiers: Urinary tract infection type: acute cystitis Hematuria presence: with hematuria Qualified Code(s): N30.01 - Acute cystitis with hematuria (3) HTN (hypertension) Priority: Secondary Status: Chronic Qualifiers: Hypertension type: essential hypertension Qualified Code(s): I10 - Essential (primary) hypertension (4) S/P mitral valve repair Priority: Secondary Status: Chronic Hospital course: Mr. Rizo is a 47 year old man who presented with one day of acute onset of left-sided flank pain, associated with nausea, vomiting and subjective fevers. He was found to have obstructing stones in his left ureter with some mild hydronephrosis. He # Left urteral nephrolithiasis s/p left distal ureteroscopy, laser lithotripsy, basket stone extraction, and stent placement on 02/18/18. His symptoms improved after the procedure, and pain was well controlled on oral anelgesics. He will follow with urology in 4 weeks. He will need to remove the stent in 5 days at home or at urology office. He was initially treated with IV ceftriaxone, but no purulent discharge was found during the procedure, he remained afebrile without leukocytosis and urine cultures revealed mixed jemma, hence Abx were not continued after discharge after discussion with urology. Other medical problems remained stable. Discharge discussed with: patient, corporate travel consultant - Time Spent with Patient Total time spent providing and/or coordinating discharge services: Greater than 30 minutes - Discharge Medications Prescriptions: OxyCODONE Immed Rel [Roxicodone 5 MG] 10 mg PO Q8HR PRN 5 Days #15 tablet PRN Reason: Severe Pain Home Medications: [place]-3/Dha/Epa/Fish Oil [Fish Oil 1,000 mg Softgel] 2 cap PO HS 01/13/16 [ History] Glucosamn/[place]n/C/Mn/Arp [Cvs Glucosamine [place] Cplt] 3 tab PO HS [History] Acetaminophen [Tylenol] 650 mg PO Q6HR PRN 7 Days tablet 02/19/18 [Rx] OxyCODONE Immed Rel [Roxicodone 5 MG] 10 mg PO Q8HR PRN 5 Days #15 tablet [Rx] Allergies/Adverse Reactions: 3 Allergy/AdvReac Type Severity Reaction Status Date / Time codeine Allergy Hives Verified 02/17/18 22:23 hydrocodone [From Lortab] Allergy Hives Verified 02/17/18 22:23 Date of admission: 02/18/18 14:00 Primary care physician: Miller Chilel DO Consults: Urology, Dr. Pabon Discharging clinician: Ann Marie Foley Anticipated date of discharge: 02/19/18 - Constitutional Vitals: Temp Pulse Resp BP Pulse Ox 98.0 F 70 15 132/83 96 02/19/18 13:54 02/19/18 13:54 02/19/18 13:54 02/19/18 13:54 02/19/18 13:54 General appearance: Present: cooperative, A&O X 3, pleasant, answers questions appropriately Exam: . - Head Head exam: Present: atraumatic, normal inspection - Eye Eye exam: Present: normal appearance. Absent: scleral icterus - ENT ENT exam: Present: mucous membranes moist, normal exam - Neck Neck exam general surgery: Present: normal inspection. Absent: nuchal rigidity - Respiratory Respiratory exam: Present: CTAB. Absent: rales, rhonchi, wheezes - Cardiovascular Cardiovascular exam: Present: RRR, +S1, +S2 - GI/Abdominal GI/Abdominal exam: Present: normal bowel sounds, soft. Absent: firm, guarding, rebound, tenderness - Extremities Exam Extremities exam: Present: warm. Absent: pedal edema, tenderness - Back Exam Back exam: Absent: CVA tenderness (L), CVA tenderness (R) - Neurological Exam Neurological exam: Present: alert, oriented X3. Absent: no focal deficits, facial droop, speech deficit - Psychiatric Psychiatric exam: Present: normal affect, normal mood - Patient Status Disposition: Home, Self-Care Condition: Good - Discharge Instructions Follow Up With: Shaan Chilel DO [Primary Care Provider] - Missael Pabon MD [Partnered Physician] - - Diet and Activity Activity: increase activity as tolerated (do not drive or operate machinery until you know how oxycodone affects your attention and reflexes) Diet: advance to your usual diet
[2018-02-23 16:31] LABS: Calculi Mass 330 mg
== END 2018-02-19 15:15 | disposition home or self-care (01) | DRG 446 ==
LOC: EMEROOARM 15:16 → 3ANU 15:16
PROVIDERS: ADMIT Internal Medicine; ATTEND Internal Medicine